=== PATIENT | female | born 1945 | race Caucasian/White ===

== ENCOUNTER → 2016-05-14 | Outpatient (CLI) | payer MEDICARE, OTHER | LOC: RAD 11:07 | PROVIDERS: ATTEND Physician Assistant | DX: G45.9 Transient cerebral ischemic attack, unspecified (principal); R41.82 Altered mental status, unspecified | CPT/HCPCS: 70551 ==

== ENCOUNTER 2016-05-15 14:21 | Observation (INO) | payer MEDICARE, OTHER ==
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
[2016-05-15 15:43] LABS: ABSOLUTE BASOPHILS # (AUTO) 0.1 10^3/uL (0.0-0.2); ABSOLUTE EOSINOPHILS # (AUTO) 0.2 10^3/uL (0.0-0.6); ABSOLUTE LYMPHOCYTES (AUTO) 2.4 10^3/uL (0.5-4.7); ABSOLUTE NEUT (AUTO) 8.3 10^3/uL (1.7-8.2); BASOPHILS % (AUTO) 0.5 % (0-2); EOSINOPHILS % (AUTO) 1.6 % (0-6); HEMATOCRIT 41.1 % (36.0-47.0); HEMOGLOBIN 13.5 g/dL (12.0-15.5); HGB HCT DIFFERENCE -0.6; LYMPHOCYTES % (AUTO) 19.9 % (13-45); MEAN CORPUSCULAR HEMOGLOBIN 31.1 pg (27.0-33.4); MEAN CORPUSCULAR HGB CONC 32.9 g/dL (32.0-36.0); MEAN CORPUSCULAR VOLUME 95 fl (80-97); MONOCYTES % (AUTO) 8.6 % (3-13); RED BLOOD COUNT 4.35 10^6/uL (3.72-5.28); RED CELL DISTRIBUTION WIDTH 13.1 % (11.5-14.0); SEGMENTED NEUTROPHILS % (AUTO) 69.4 % (42-78)
[2016-05-15 15:58] LABS: ALANINE AMINOTRANSFERASE 78 U/L (9-52); ALBUMIN 4.7 g/dL (3.5-5.0); ALKALINE PHOSPHATASE 103 U/L (38-126); ANION GAP 12 (5-19); ASPARTATE AMINO TRANSFERASE 91 U/L (14-36); BILIRUBIN,TOTAL 0.8 mg/dL (0.2-1.3); BLOOD UREA NITROGEN 14 mg/dL (7-20); CALCIUM 10.2 mg/dL (8.4-10.2); CARBON DIOXIDE 29 mmol/L (22-30); CHLORIDE 96 mmol/L (98-107); CREATININE RESULT 0.83 mg/dL (0.52-1.25); GLUCOSE 121 mg/dL (75-110); POTASSIUM 4.8 mmol/L (3.6-5.0); SODIUM 137.2 mmol/L (137-145); TOTAL PROTEIN 10.1 g/dL (6.3-8.2)
[2016-05-15 16:24] LABS: CREATINE KINASE MB < 0.22 ng/mL (<4.55); TROPONIN I < 0.012 ng/mL
[2016-05-15 16:34] LABS: APPEARANCE,URINE SLIGHTLY-CLOUDY; BILIRUBIN,URINE NEGATIVE (NEGATIVE); CALCIUM OXALATE CRYSTALS,URINE RARE /HPF; GLUCOSE, URINE NEGATIVE (NEGATIVE); KETONES,URINE NEGATIVE (NEGATIVE); LEUKOCYTE ESTERASE,URINE TRACE (NEGATIVE); NITRITE,URINE NEGATIVE (NEGATIVE); PROTEIN,URINE 30 mg/dL (NEGATIVE); URINE SPECIFIC GRAVITY 1.013; UROBILINOGEN,URINE NEGATIVE mg/dL (<2.0)
[2016-05-15] MEDS ORDERED: HYDRALAZINE HCL INJ/PF 20 MG/1 ML SDV IV PRN (17:57)
[2016-05-15] MEDS ORDERED: ACETAMINOPHEN 325 MG TABLET PO PRN (17:58)
[2016-05-15] MEDS ORDERED: ONDANSETRON HCL INJ/PF 4 MG/2 ML SDV IV PRN (17:58)
[2016-05-15] MEDS ORDERED: ENOXAPARIN SODIUM INJ 40 MG/0.4 ML DISP.SYRIN SUBCUT ONE (19:00)
--- NOTE | 2016-05-15 19:00 | PDOC H&P ---
History of Present Illness Admission Date/PCP: 05/15/16 17:58 TIRSO PLUNKETT PA-C Patient complains of: Dizziness History of Present Illness: JAI BULLARD is a 71 year old female with past medical history of hypertension and hypercholesterolemia that presents to the hospital with episode 3 days ago of dizziness, slurring speech. Since then she has had frequent episodes of crying spells. She did have an isolated headache today that has now resolved. Incidentally she was started on 6 new medications on the day prior to the onset of her symptoms. She does not know the name of these medications but they were for hypertension, hypercholesterolemia, osteoporosis. She had these medications filled at [facility] [place]. Patient was seen yesterday by her primary care provider and had an MRI of her brain that showed multiple old lacunar infarcts with no acute stroke. Past Medical History Cardiac Medical History: Reports: Coronary Artery Disease, Hyperlipidema, Hypertension Denies: Myocardial Infarction Pulmonary Medical History: Denies: Asthma, Bronchitis, Chronic Obstructive Pulmonary Disease (COPD), Pneumonia Neurological Medical History: Denies: Seizures Musculoskeltal Medical History: Denies: Arthritis Hematology: Reports: Anemia Past Surgical History Past Surgical History: Reports: Cholecystectomy Denies: Hysterectomy Social History Information Source: Patient Lives with: Spouse/Significant other Smoking Status: Never Smoker Frequency of Alcohol Use: None Hx Recreational Drug Use: No Hx Prescription Drug Abuse: No - Advance Directive Resuscitation Status: Full Code Family History Family History: CVA, Hypertension Parental Family History Reviewed: Yes Children Family History Reviewed: Yes Sibling(s) Family History Reviewed.: Yes Medication/Allergy Home Medications: Alendronate Sodium [Fosamax 10 mg Tablet] 10 mg PO DAILY 05/15/16 Atorvastatin Calcium [Lipitor 20 mg Tablet] 20 mg PO QHS 05/15/16 Cetirizine HCl [Zyrtec 10 mg Tablet] 10 mg PO DAILY 05/15/16 Hydrochlorothiazide [Hydrodiuril 12.5 mg Capsule] 12.5 mg PO DAILY 05/15/16 Lisinopril [Prinivil] 20 mg PO DAILY 05/15/16 Allergies/Adverse Reactions: No Known Allergies Allergy (Verified 05/15/16 14:41) Review of Systems Constitutional: ABSENT: chills, fever(s), headache(s), weight gain, weight loss Eyes: ABSENT: visual disturbances Ears: ABSENT: hearing changes Cardiovascular: ABSENT: chest pain, dyspnea on exertion, edema, orthropnea, palpitations Respiratory: ABSENT: cough, hemoptysis Gastrointestinal: ABSENT: abdominal pain, constipation, diarrhea, hematemesis, hematochezia, nausea, vomiting Genitourinary: ABSENT: dysuria, hematuria Musculoskeletal: ABSENT: joint swelling Integumentary: ABSENT: rash, wounds Neurological: PRESENT: abnormal speech, dizziness, lack of coordination. ABSENT : abnormal gait, confusion, focal weakness, syncope Psychiatric: ABSENT: anxiety, depression, homidical ideation, suicidal ideation Endocrine: ABSENT: cold intolerance, heat intolerance, polydipsia, polyuria Hematologic/Lymphatic: ABSENT: easy bleeding, easy bruising Physical Exam Vital Signs: Temp Pulse Resp BP Pulse Ox 97.9 F 84 20 167/78 H 05/15/16 14:26 05/15/16 16:20 05/15/16 14:26 05/15/16 16:20 PHYSICAL EXAM: GENERAL: Appears well, no acute distress HEENT: Normocephalic, no scleral icterus, conjunctiva clear, EOEM intact, PERRLA , moist mucous membranes NECK: trachea midline, no thyromegally RESPIRATORY: Clear to auscultation, no wheezes/rhonchi CARDIAC: Regular rate and rhythm, no murmur/ilia/rub ABDOMEN: Soft, no distension, no tenderness, no guarding, normal bowel sounds, negative Bean sign RECTAL: deferred : deferred EXTREMITIES: No edema, cyanosis, clubbing MUSCULOSKELETAL: No joint swelling or deformity VASCULAR: normal peripheral pulses NEUROLOGIC: Alert, oriented to person/place/time, normal speech, cranial nerves grossly intact, 5/5 strength in all extremities, tactile sensation intact in all extremities SKIN: No rash, no wounds, no worrisome skin lesions PSYCHIATRIC: Normal mood, normal affect Results Laboratory Results: Labs- All tests 24 hr 05/15/16 05/15/16 05/15/16 15:00 15:00 15:00 WBC 12.0 H RBC 4.35 Hgb 13.5 Hct 41.1 MCV 95 MCH 31.1 MCHC 32.9 RDW 13.1 Plt Count 297 Seg Neutrophils % 69.4 Lymphocytes % 19.9 Monocytes % 8.6 Eosinophils % 1.6 Basophils % 0.5 Absolute Neutrophils 8.3 H Absolute Lymphocytes 2.4 Absolute Monocytes 1.0 Absolute Eosinophils 0.2 Absolute Basophils 0.1 Sodium 137.2 Potassium 4.8 Chloride 96 L Carbon Dioxide 29 Anion Gap 12 BUN 14 Creatinine 0.83 Est GFR ( Amer) > 60 Est GFR (Non-Af Amer) > 60 Glucose 121 H Calcium 10.2 Total Bilirubin 0.8 Direct Bilirubin 0.0 AST 91 H ALT 78 H Alkaline Phosphatase 103 Creatine Kinase 32 CK-MB (CK-2) Troponin I Total Protein 10.1 H Albumin 4.7 Urine Color Urine Appearance Urine pH Ur Specific [place] Urine Protein Urine Glucose (UA) Urine Ketones Urine Blood Urine Nitrite Urine Bilirubin Urine Urobilinogen Ur Leukocyte Esterase Urine WBC (Auto) Urine RBC (Auto) Squamous Epi Cells Auto Calcium Oxalate Cr Auto Urine Mucus (Auto) Urine Ascorbic Acid 05/15/16 05/15/16 15:00 15:49 WBC RBC Hgb Hct MCV MCH MCHC RDW Plt Count Seg Neutrophils % Lymphocytes % Monocytes % Eosinophils % Basophils % Absolute Neutrophils Absolute Lymphocytes Absolute Monocytes Absolute Eosinophils Absolute Basophils Sodium Potassium Chloride Carbon Dioxide Anion Gap BUN Creatinine Est GFR ( Amer) Est GFR (Non-Af Amer) Glucose Calcium Total Bilirubin Direct Bilirubin AST ALT Alkaline Phosphatase Creatine Kinase CK-MB (CK-2) < 0.22 Troponin I < 0.012 Total Protein Albumin Urine Color YELLOW Urine Appearance SLIGHTLY-CLOUDY Urine pH 5.0 Ur Specific [place] 1.013 Urine Protein 30 H Urine Glucose (UA) NEGATIVE Urine Ketones NEGATIVE Urine Blood NEGATIVE Urine Nitrite NEGATIVE Urine Bilirubin NEGATIVE Urine Urobilinogen NEGATIVE Ur Leukocyte Esterase TRACE H Urine WBC (Auto) 7 Urine RBC (Auto) 2 Squamous Epi Cells Auto 1 Calcium Oxalate Cr Auto RARE Urine Mucus (Auto) RARE Urine Ascorbic Acid 40 H Assessment & Plan - Diagnosis (1) TIA (transient ischemic attack) Is this a current diagnosis for this admission?: YesPlan: Patient will be placed in observation status on telemetry monitoring. MRI of the brain on 05/14/2016 showed multiple old lacunar infarct but no acute process. I will start patient on aspirin 325 mg daily, Lipitor 40 mg nightly. Check carotid Dopplers, echocardiogram. Patient may need outpatient event monitor if nothing noted on EKG or telemetry. Check sedimentation rate given headache and TIA symptoms. (2) Hypertension Is this a current diagnosis for this admission?: YesPlan: Verify outpatient medications. When necessary IV hydralazine for now. (3) Hypercholesterolemia Is this a current diagnosis for this admission?: YesPlan: Start Lipitor 40 mg daily. (4) Leukocytosis Is this a current diagnosis for this admission?: YesPlan: Afebrile. Urinalysis negative. Check chest x-ray. Repeat CBC in a.m. Check sedimentation rate given headache and TIA symptoms. - Time Time Spent: Greater than 70 Minutes Anticipated discharge: Home Within: within 24 hours
[2016-05-15] MEDS ORDERED: ASPIRIN 81 MG TABLET, CHEWABLE PO ONE (19:15)
--- NOTE | 2016-05-15 20:30 | PDOC CONSULTATION ---
Consultation Consult Date: 05/15/16 Attending physician:: JAIRO PAULSON Consult reason:: TIA/stroke History of Present Illness Admission Date/PCP: 05/15/16 17:58 TIRSO PLUNKETT PA-C Patient complains of: Cerebrovascular accident History of Present Illness: JAI BULLARD is a 71 year old female with past medical history of hypertension and hypercholesterolemia that presents to the hospital with episode 3 days ago of dizziness, slurring speech. Since then she has had frequent episodes of crying spells. She did have an isolated headache today that has now resolved. Incidentally she was started on 6 new medications on the day prior to the onset of her symptoms. She does not know the name of these medications but they were for hypertension, hypercholesterolemia, osteoporosis. She had these medications filled at the base [facility] at [place]. Patient was seen yesterday by her primary care provider and had an MRI of her brain that showed multiple old lacunar infarcts with no acute stroke. Patient earlier today had complaint of severe left-sided headache but this has now resolved. Patient has been noted to have a flat and labile affect by the family members. No problems with gait has been noted. Past Medical History Cardiac Medical History: Reports: Coronary Artery Disease, Hyperlipidema, Hypertension Denies: Myocardial Infarction Pulmonary Medical History: Denies: Asthma, Bronchitis, Chronic Obstructive Pulmonary Disease (COPD), Pneumonia Neurological Medical History: Denies: Seizures Musculoskeltal Medical History: Denies: Arthritis Hematology: Reports: Anemia Past Surgical History Past Surgical History: Reports: Cholecystectomy Denies: Hysterectomy Social History Information Source: Patient Lives with: Spouse/Significant other Smoking Status: Never Smoker Frequency of Alcohol Use: None Hx Recreational Drug Use: No Hx Prescription Drug Abuse: No - Advance Directive Resuscitation Status: Full Code Surrogate healthcare decision maker:: Patient's Family History Family History: CVA, Hypertension Parental Family History Reviewed: Yes Children Family History Reviewed: Yes Sibling(s) Family History Reviewed.: Yes - Negative for premature coronary artery disease or sudden cardiac in the family amongst first degree relatives. Medication/Allergy Home Medications: Alendronate Sodium [Fosamax 10 mg Tablet] 10 mg PO DAILY 05/15/16 Atorvastatin Calcium [Lipitor 20 mg Tablet] 20 mg PO QHS 05/15/16 Cetirizine HCl [Zyrtec 10 mg Tablet] 10 mg PO DAILY 05/15/16 Hydrochlorothiazide [Hydrodiuril 12.5 mg Capsule] 12.5 mg PO DAILY 05/15/16 Lisinopril [Prinivil] 20 mg PO DAILY 05/15/16 Allergies/Adverse Reactions: No Known Allergies Allergy (Verified 05/15/16 14:41) Review of Systems Review of Systems: Please see history of present illness and past medical history as wall. Constitutional: No fever or chills reported. Head : No recent chronic headaches, recent head injury. Eyes: No recent eye pain, diplopia, redness, discharge, acute visual changes. Ears: No recent chronic ear pain, acute hearing loss, ear discharge. Oral cavity: No recent ulcerations, bleeding, oral cavity discomfort. Neck: No recent acute neck pain reported. Hematologic: No recent easy bruising or bleeding or hematologic malignancy reported. Lymphatic: No recent lymphatic malignancy, chronic lymphadenopathy reported yet Cardiovascular system review: See history of present illness. Respiratory system review: No recent chronic cough, hemoptysis, blood clots in the lungs reported. Mild Shortness of breath on exertion Gastrointestinal system review: Negative for any recent acute or chronic abdominal pain, hematemesis, melena, recent change in bowel habits. Genitourinary system review: No recent acute or chronic hematuria, flank pain, UTI etc. reported. Skin system review: Negative for any recent abnormal bruising, no rash, no pruritus reported. Neurologic: No prior history of strokes, mini strokes, seizure disorder. Please see history of present illness for recent neurological symptoms. Psychologic: No history of major psychosis or depression reported. Musculoskeletal: Minor aches and pains reported. No acute joint swelling reported. Endocrine: No recent polyuria, polydipsia, recent heat or cold intolerance. Physical Exam Vital Signs: Temp Pulse Resp BP Pulse Ox 97.9 F 84 20 167/78 H 05/15/16 14:26 05/15/16 16:20 05/15/16 14:26 05/15/16 16:20 Exam: GENERAL: well-nourished and in no acute distress. Alert and oriented x3 HEAD: Atraumatic, normocephalic. EYES: Pupils equal round and reactive to light, extraocular movements intact, sclera anicteric, conjunctiva are normal. ENT: TMs normal, nares patent, oropharynx clear without exudates. Moist mucous membranes. No oral ulcerations or bleeding gums noted NECK: supple without lymphadenopathy. Trachea is central. No cervical or axillary lymphadenopathy noted. Carotids are 2+, JVD WNL LUNGS: Respiration seems nonlabored, no significant accessory muscle action noted. Breath sounds clear to auscultation bilaterally and equal noted. No wheezes rales or rhonchi noted. No significant dullness noted on percussion. CHEST: Palpation of the chest wall shows no significant chest wall tenderness or abnormalities. 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 ABDOMEN: Soft, no significant tenderness appreciated, normoactive bowel sounds. No guarding, no rebound. No rigidity noted . No masses appreciated. EXTREMITIES: Pedal pulses are 1-2+, no calf tenderness noted. No clubbing or cyanosis.negative pedal edema noted NEUROLOGICAL: Focused neurological exam showed no significant neurologic deficit. Normal speech, no focal weakness appreciated. PSYCH: Normal mood, flat affect. Judgment and insight within normal limits. SKIN: No significant ecchymosis, rash, ulcerations or signs of pruritus noted. MUSCULOSKELETAL EXAM: No significant joint swelling noted. Results Impressions: Chest X-Ray 05/15/16 18:02 IMPRESSION: COPD. NO ACUTE RADIOGRAPHIC FINDING IN THE CHEST. Assessment & Plan - Diagnosis (1) Cerebrovascular accident Qualifiers: CVA mechanism: unspecified Qualified Code(s): I63.9 - Cerebral infarction, unspecified Is this a current diagnosis for this admission?: Yes (2) Headache Qualifiers: Headache type: unspecified Headache chronicity pattern: unspecified pattern Intractability: not intractable Qualified Code(s): R51 - Headache Is this a current diagnosis for this admission?: Yes (3) Hypercholesterolemia Is this a current diagnosis for this admission?: Yes (4) Hypertension Qualifiers: Hypertension type: essential hypertension Qualified Code(s): I10 - Essential (primary) hypertension Is this a current diagnosis for this admission?: Yes (5) TIA (transient ischemic attack) Qualifiers: Transient cerebral ischemia type: unspecified Qualified Code(s): G45.9 - Transient cerebral ischemic attack, unspecified Is this a current diagnosis for this admission?: Yes - Notes Notes: Patient noted to have previous cerebrovascular accident based on MRI. Patient' s symptom complex also suggest ongoing transient ischemic attacks. Patient mostly was noted to have lacunar infarct, these are most likely related to hypertension. Headaches: Could be related to cerebrovascular accident. Could be related to uncontrolled hypertension. Resume antihypertensive but go slow regarding escalation of doses so that hypo-tension is not created. Hypercholesterolemia: Recommend statin therapy. LDL goal less than 70. Hypertension: [place] management at this point but long-term tightening up of blood pressure control would help. Patient will benefit from event monitoring as patient at the age where she could have paroxysmal atrial fibrillation as cause of strokes and TIA. This was explained to the patient. - Time Time Spent: 30 to 50 Minutes - CODE STATUS was discussed, patient remains full code. Surrogate decision-maker patient's . Multiple medical problems were addressed.More than 50% of the time spent coordinating care, discussing management plans with involved caregivers. Management plans discussed with involved personnels. Medical decision making was of moderate complexity.
[2016-05-15 21:46] LABS: CREATINE KINASE MB < 0.22 ng/mL (<4.55); TROPONIN I < 0.012 ng/mL
[2016-05-15] MEDS ORDERED: ATORVASTATIN CALCIUM 40 MG TABLET PO SCH (22:00)
[2016-05-16 03:18] LABS: HEMATOCRIT 35.7 % (36.0-47.0); HEMOGLOBIN 12.4 g/dL (12.0-15.5); HGB HCT DIFFERENCE 1.5; MEAN CORPUSCULAR HEMOGLOBIN 32.6 pg (27.0-33.4); MEAN CORPUSCULAR HGB CONC 34.7 g/dL (32.0-36.0); MEAN CORPUSCULAR VOLUME 94 fl (80-97); RED BLOOD COUNT 3.81 10^6/uL (3.72-5.28); RED CELL DISTRIBUTION WIDTH 12.7 % (11.5-14.0); WHITE BLOOD COUNT 10.9 10^3/uL (4.0-10.5)
[2016-05-16 03:40] LABS: ANION GAP 8 (5-19); BLOOD UREA NITROGEN 14 mg/dL (7-20); CALCIUM 9.5 mg/dL (8.4-10.2); CARBON DIOXIDE 27 mmol/L (22-30); CHLORIDE 100 mmol/L (98-107); CHOLESTEROL 207.04 mg/dL (0-200); CREATINE KINASE 26 U/L (30-135); CREATININE RESULT 0.74 mg/dL (0.52-1.25); Direct HDL 27 mg/dL (>40); GLUCOSE 106 mg/dL (75-110); POTASSIUM 4.3 mmol/L (3.6-5.0); SODIUM 135.3 mmol/L (137-145); TRIGLYCERIDES 219 mg/dL (<150)
[2016-05-16 03:51] LABS: DIRECT LDL 149 mg/dL (<100)
[2016-05-16 03:54] LABS: CREATINE KINASE MB < 0.22 ng/mL (<4.55); TROPONIN I < 0.012 ng/mL; VLDL CHOLESTEROL 43.8 mg/dL (10-31)
[2016-05-16] MEDS ORDERED: ENOXAPARIN SODIUM INJ 40 MG/0.4 ML DISP.SYRIN SUBCUT SCH (08:00)
--- NOTE | 2016-05-16 08:45 | EKG REPORT ---
SEVERITY:- NORMAL ECG - SINUS RHYTHM : Confirmed by: Gavin Whitmore MD 16-May-2016 08:44:13
[2016-05-16 09:57] LABS: CREATINE KINASE MB < 0.22 ng/mL (<4.55); TROPONIN I < 0.012 ng/mL
[2016-05-16] MEDS ORDERED: ASPIRIN 325 MG TABLET, ENT COATED PO SCH (10:00)
--- NOTE | 2016-05-16 13:55 | XCELERA REPORT ---
[address] [address] Transthoracic Echocardiogram Report Name: JAI BULLARD Age: 71 yrs Gender: Female : 1945 Patient Status: Inpatient Patient Location: [id number] Study Date: 05/16/2016 11:54 AM Height: 64 in Weight: 132 lb BSA: 1.6 m2 Procedure: A complete two-dimensional transthoracic echocardiogram was performed (2D, M-mode, spectral and color flow Doppler). The study was technically adequate with some images being suboptimal in quality. Reason For Study: TIA Ordering Physician: JAIRO PAULSON Performed By: Renetta Gilman Interpretation Summary The left ventricular ejection fraction is normal. There is mild concentric left ventricular hypertrophy. The left ventricle is grossly normal size. Doppler measurements suggest pseudonormalized left ventricular relaxation, which is associated with grade II/IV or mild to moderate diastolic dysfunction Wall motion cannot be accurately commented on, but no definite regional wall motion abnormalities noted. The right ventricular systolic function is normal. The right atrium is normal in size The left atrium is mildly dilated. There is borderline mitral valve posterior leaflet prolapse. There is a mild amount of mitral regurgitation There is no mitral valve stenosis. There is no aortic valve stenosis No aortic regurgitation is present. There is a mild amount of tricuspid regurgitation There is mild pulmonary hypertension by echo Right ventricular systolic pressure is estimated to be elevated at 30- 40mmHg. The aortic root is not well visualized but is probably normal size. The inferior vena cava appeared normal and decreased > 50% with respiration (RAP 5-10 mmHg) There is no pericardial effusion. No definite cardiac source of CVA/TIA noted on this particular trans- thoracic study. Consider FREDY if clinically indicated. May consider mobile cardiac telemetry monitoring (MCT) for ruling out transient AFIB. MMode/2D Measurements \T\ Calculations RVDd: 2.5 cm LVIDd: 3.6 cm FS: 35.9 % Ao root diam: 2.4 cm IVSd: 1.0 cm LVIDs: 2.3 cm EDV(Teich): 53.3 ml LVPWd: 1.0 cm ESV(Teich): 17.9 ml Ao root area: 4.5 cm2 EF(Teich): 66.4 % LA dimension: 3.1 cm Doppler Measurements \T\ Calculations MV E max wm: MV P1/2t max wm: Ao V2 max: LV V1 max P.4 cm/sec 85.4 cm/sec 105.2 cm/sec 2.6 mmHg MV A max wm: MV P1/2t: 58.8 msec Ao max PG: LV V1 max: 88.4 cm/sec 4.4 mmHg 80.5 cm/sec MV E/A: 0.97 MVA(P1/2t): 3.7 cm2 MV dec slope: 425.4 cm/sec2 MV dec time: 0.22 sec PA V2 max: PI end-d wm: TR max wm: 76.5 cm/sec 82.5 cm/sec 249.8 cm/sec PA max PG: TR max P.3 mmHg 25.0 mmHg Left Ventricle The left ventricle is grossly normal size. There is mild concentric left ventricular hypertrophy. The left ventricular ejection fraction is normal. Doppler measurements suggest pseudonormalized left ventricular relaxation, which is associated with grade II/IV or mild to moderate diastolic dysfunction. Wall motion cannot be accurately commented on, but no definite regional wall motion abnormalities noted. Right Ventricle The right ventricle is grossly normal size. There is normal right ventricular wall thickness. The right ventricular systolic function is normal. Atria The right atrium is normal in size. The left atrium is mildly dilated. Interarterial septum not well visualized and not well dopplered. Cannot comment on ASD/PFO presence. Mitral Valve The mitral valve is grossly normal. There is borderline mitral valve prolapse. There is no mitral valve stenosis. There is a mild amount of mitral regurgitation. Aortic Valve The aortic valve is grossly normal. There is no aortic valve stenosis. No aortic regurgitation is present. Tricuspid Valve The tricuspid valve is not well visualized, but is grossly normal. There is no tricuspid stenosis. There is a mild amount of tricuspid regurgitation. There is mild pulmonary hypertension by echo. Right ventricular systolic pressure is estimated to be elevated at 30-40mmHg. Pulmonic Valve The pulmonic valve is not well visualized. Great Vessels The aortic root is not well visualized but is probably normal size. The inferior vena cava appeared normal and decreased > 50% with respiration (RAP 5-10 mmHg). Effusions There is no pericardial effusion. Incidental Findings No definite cardiac source of CVA/TIA noted on this particular trans- thoracic study. Consider FREDY if clinically indicated. May consider mobile cardiac telemetry monitoring (MCT) for ruling out transient AFIB. : JAIRO PAULSON > Malvin Gonzalez
[2016-05-16] MEDS ORDERED: LISINOPRIL 10 MG TABLET PO ONE (15:15)
--- NOTE | 2016-05-16 15:26 | PDOC PROGRESS REPORT ---
Subjective Progress Note for:: 05/16/16 Subjective:: Patient seems to be doing better, with no new neurological deficit or complaint. Pt is denying any chest arm or neck discomfort. Patient denying any PND, orthopnea. Patient denied any sustained palpitations, dizziness, syncope, near syncope. Patient denying any fever chills. Patient denying any other significant discomfort. Patient is maintaining sinus rhythm. Review of systems: Rest review of systems negative. Medications: Medications have been reviewed. Physical Exam Vital Signs: Temp Pulse Resp BP Pulse Ox 98.1 F 83 20 126/65 H 97 05/16/16 11:33 05/16/16 14:00 05/16/16 11:33 05/16/16 11:33 05/16/16 11:33 Intake & Output 05/15/16 05/16/16 05/17/16 06:59 06:59 06:59 Intake Total 350 Balance 350 Weight 56.7 kg Exam: GENERAL: well-nourished and in no acute distress. Alert and oriented x3 HEAD: Atraumatic, normocephalic. EYES: Pupils equal round and reactive to light, extraocular movements intact, sclera anicteric, conjunctiva are normal. ENT: TMs normal, nares patent, oropharynx clear without exudates. Moist mucous membranes. No oral ulcerations or bleeding gums noted NECK: supple without lymphadenopathy. Trachea is central. No cervical or axillary lymphadenopathy noted. Carotids are 2+, JVD WNL LUNGS: Respiration seems nonlabored, no significant accessory muscle action noted. Breath sounds clear to auscultation bilaterally and equal noted. No wheezes rales or rhonchi noted. No significant dullness noted on percussion. CHEST: Palpation of the chest wall shows no significant chest wall tenderness. No other significant abnormalities noted. 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 ABDOMEN: Soft, no significant tenderness appreciated, normoactive bowel sounds. No guarding, no rebound. No rigidity noted . No masses appreciated. EXTREMITIES: Pedal pulses are 1-2+, no calf tenderness noted. No clubbing or cyanosis.trace to 1+ pedal edema noted NEUROLOGICAL: Focused neurological exam showed no significant neurologic deficit. Normal speech, no focal weakness appreciated. PSYCH: Normal mood, normal affect. Judgment and insight within normal limits. SKIN: No significant ecchymosis, rash, ulcerations or signs of pruritus noted. MUSCULOSKELETAL EXAM: No significant joint swelling noted. Results Laboratory Results: 05/16/16 03:11 05/16/16 03:11 05/16/16 05/16/16 05/16/16 03:11 03:11 03:11 WBC 10.9 H RBC 3.81 Hgb 12.4 Hct 35.7 L MCV 94 MCH 32.6 MCHC 34.7 RDW 12.7 Plt Count 220 Sodium 135.3 L Potassium 4.3 Chloride 100 Carbon Dioxide 27 Anion Gap 8 BUN 14 Creatinine 0.74 Est GFR ( Amer) > 60 Est GFR (Non-Af Amer) > 60 Glucose 106 Calcium 9.5 Triglycerides 219 H Cholesterol 207.04 H LDL Cholesterol Direct 149 H VLDL Cholesterol 43.8 H HDL Cholesterol 27 L TSH 1.34 05/15/16 05/15/16 05/16/16 21:05 21:05 03:11 Creatine Kinase 27 L 26 L CK-MB (CK-2) < 0.22 Troponin I < 0.012 05/16/16 05/16/16 05/16/16 03:11 09:13 09:13 Creatine Kinase 28 L CK-MB (CK-2) < 0.22 < 0.22 Troponin I < 0.012 < 0.012 Impressions: Chest X-Ray 05/15/16 18:02 IMPRESSION: COPD. NO ACUTE RADIOGRAPHIC FINDING IN THE CHEST. Carotid Doppler Study 05/16/16 00:00 IMPRESSION: NO HEMODYNAMICALLY SIGNIFICANT STENOSIS. Assessment & Plan - Diagnosis (1) Cerebrovascular accident Qualifiers: CVA mechanism: unspecified Qualified Code(s): I63.9 - Cerebral infarction, unspecified Is this a current diagnosis for this admission?: Yes (2) Headache Qualifiers: Headache type: unspecified Headache chronicity pattern: unspecified pattern Intractability: not intractable Qualified Code(s): R51 - Headache Is this a current diagnosis for this admission?: Yes (3) Hypercholesterolemia Is this a current diagnosis for this admission?: Yes (4) Hypertension Qualifiers: Hypertension type: essential hypertension Qualified Code(s): I10 - Essential (primary) hypertension Is this a current diagnosis for this admission?: Yes (5) TIA (transient ischemic attack) Qualifiers: Transient cerebral ischemia type: unspecified Qualified Code(s): G45.9 - Transient cerebral ischemic attack, unspecified Is this a current diagnosis for this admission?: Yes - Notes Notes: Cerebrovascular accident: Patient had multiple lacunar infarct. Could be related to hypertension. Possible sleep apnea syndrome, possible cardiac dysrhythmia related. Patient to be treated with aspirin and statin at this point. Needs satisfactory control of blood pressure. Headache: Not a pain this morning. Hypercholesterolemia: LDL goal is less than 70 in this patient. Continue with statin therapy. Transient ischemic attack: No recurrences. - Time Time with patient: Greater than 35 minutes - 2-D echo results were discussed. Patient advised event monitoring. Patient would benefit from a sleep study to rule out any sleep apnea which has been linked to increased cause of strokes. CODE STATUS was discussed, patient remains full code. Surrogate decision-maker ration's . Multiple medical problems were addressed.More than 50% of the time spent coordinating care, discussing management plans with involved caregivers. Management plans discussed with involved personnels. Medical decision making was of moderate complexity. Medications reviewed and adjusted accordingly: Yes
[2016-05-16 15:45] VITALS: BP 136/76
[2016-05-17] MEDS ORDERED: LISINOPRIL 10 MG TABLET PO SCH (10:00)
[2016-05-17] MEDS ORDERED: ALENDRONATE SODIUM 10 MG TABLET PO SCH (10:00)
[2016-05-17] MEDS ORDERED: CETIRIZINE 10 MG TABLET PO SCH (10:00)
--- NOTE | 2016-05-18 16:50 | PDOC DISCHARGE SUMMARY ---
General - Admit/Disc Date/PCP Admission Date/Primary Care Provider: 05/15/16 17:58 TIRSO PLUNKETT PA-C Discharge Date: 05/16/16 - Discharge Diagnosis (1) TIA (transient ischemic attack) Is this a current diagnosis for this admission?: Yes (2) Hypertension Is this a current diagnosis for this admission?: Yes (3) Hypercholesterolemia Is this a current diagnosis for this admission?: Yes (4) Leukocytosis Is this a current diagnosis for this admission?: Yes - Additional Information Resuscitation Status: Full Code Discharge Diet: Cardiac Discharge Activity: Activity As Tolerated Home Medications: Alendronate Sodium [Fosamax 10 mg Tablet] 10 mg PO DAILY 05/15/16 Atorvastatin Calcium [Lipitor 20 mg Tablet] 20 mg PO QHS 05/15/16 Cetirizine HCl [Zyrtec 10 mg Tablet] 10 mg PO DAILY 05/15/16 Aspirin [Ecotrin 325 mg EC Tablet] 325 mg PO DAILY tabec 05/16/16 Lisinopril [Prinivil 10 mg Tablet] 10 mg PO DAILY #30 tablet 05/16/16 History of Present Illness Patient complains of: Dizziness History of Present Illness: JAI BULLARD is a 71 year old female with past medical history of hypertension and hypercholesterolemia that presents to the hospital with episode 3 days ago of dizziness, slurring speech. Since then she has had frequent episodes of crying spells. She did have an isolated headache today that has now resolved. Incidentally she was started on 6 new medications on the day prior to the onset of her symptoms. She does not know the name of these medications but they were for hypertension, hypercholesterolemia, osteoporosis. She [facility] these medications [facility] [place]. Patient was seen yesterday by her primary care provider and had an MRI of her brain that showed multiple old lacunar infarcts with no acute stroke. Hospital Course Hospital Course: Patient was admitted for diagnosis of TIA. She had an outpatient MRI performed on 05/14/2016 that showed multiple old lacunar infarcts but no acute process. Carotid Dopplers were negative. EKG showed sinus rhythm. Echocardiogram showed normal EF, grade 2/4 as tolerated dysfunction, no significant valvular issues. Patient was seen by cardiology for this as well as dizziness and near syncope. It is recommended that patient have outpatient event monitor this will be arranged. Patient is to be continued on aspirin and statin. With regard to patient's hypertension, she recently had increase in her left pressure medications in the day after medications were increased she had TIA symptoms and dizziness. I will discontinue hydrochlorothiazide and decrease lisinopril to 10 mg daily. She will need to follow-up with her primary care provider soon as possible. Physical Exam Vital Signs: Temp Pulse Resp BP Pulse Ox 98.1 F 83 20 126/65 H 97 05/16/16 11:33 05/16/16 14:00 05/16/16 11:33 05/16/16 11:33 05/16/16 11:33 Intake & Output 05/15/16 05/16/16 05/17/16 06:59 06:59 06:59 Intake Total 350 Balance 350 Weight 56.7 kg GENERAL: No acute distress HEENT: Conjunctiva clear, nonicteric, moist mucous membranes, no JVD, midline trachea RESPIRATORY: Clear to auscultation bilaterally, no wheezes, no rhonchi CARDIAC: Regular rate and rhythm, no murmurs/gallops/rubs ABDOMEN: Soft, nondistended, nontender, positive bowel sounds, no rebound, no guarding EXTREMETIES: No edema, cyanosis, clubbing NEUROLOGIC: Alert, oriented to person/place/time, CN's grossly intact, no focal deficits SKIN: No rash, wounds PSYCH: Normal mood, normal affect Results Laboratory Results: 05/16/16 03:11 05/16/16 03:11 05/16/16 05/16/16 05/16/16 03:11 03:11 03:11 WBC 10.9 H RBC 3.81 Hgb 12.4 Hct 35.7 L MCV 94 MCH 32.6 MCHC 34.7 RDW 12.7 Plt Count 220 Sodium 135.3 L Potassium 4.3 Chloride 100 Carbon Dioxide 27 Anion Gap 8 BUN 14 Creatinine 0.74 Est GFR ( Amer) > 60 Est GFR (Non-Af Amer) > 60 Glucose 106 Calcium 9.5 Triglycerides 219 H Cholesterol 207.04 H LDL Cholesterol Direct 149 H VLDL Cholesterol 43.8 H HDL Cholesterol 27 L TSH 1.34 05/15/16 05/15/16 05/16/16 21:05 21:05 03:11 Creatine Kinase 27 L 26 L CK-MB (CK-2) < 0.22 Troponin I < 0.012 05/16/16 05/16/16 05/16/16 03:11 09:13 09:13 Creatine Kinase 28 L CK-MB (CK-2) < 0.22 < 0.22 Troponin I < 0.012 < 0.012 Impressions: Chest X-Ray 05/15/16 18:02 IMPRESSION: COPD. NO ACUTE RADIOGRAPHIC FINDING IN THE CHEST. Carotid Doppler Study 05/16/16 00:00 IMPRESSION: NO HEMODYNAMICALLY SIGNIFICANT STENOSIS. Qualifiers PATEINT BEING DISCHARGED WITH ANY OF THE FOLLOWING DIAGNOSIS?: No Plan Time Spent: Less than 30 Minutes
== END 2016-05-16 17:01 | disposition home or self-care (01) ==
LOC: ER 14:21 → EH 17:56 → UNDOADMOB 17:56 → EH 17:58 → 4N 21:43
DX: G45.9 Transient cerebral ischemic attack, unspecified (principal); I10 Essential (primary) hypertension; E78.00 Pure hypercholesterolemia, unspecified; I25.10 Atherosclerotic heart disease of native coronary artery without angina pectoris; D64.9 Anemia, unspecified; Z79.899 Other long term (current) drug therapy; Z90.49 Acquired absence of other specified parts of digestive tract
CPT/HCPCS: 99285; 36415 ×2; 82553 ×2; 82550 ×2; 84443; 85025; 85027; 85652; 80048; 80053; 81001; 84484 ×2; 80061; 93306; 93880; 71010; 93005; 93010; G0378 ×3; A9270 ×3; J3490 ×2

== ENCOUNTER → 2016-09-14 | Outpatient (CLI) | payer MEDICARE, OTHER ==
--- NOTE | 2016-09-14 16:15 | RADIOLOGY REPORT (SQ) ---
EXAM DESCRIPTION: CHEST PA/LAT COMPLETED DATE/TIME: 09/14/2016 3:42 pm REASON FOR STUDY: COUGH/WHEEZING COMPARISON: Chest x-ray 2009 TECHNIQUE: Frontal and lateral radiographic views of the chest acquired. NUMBER OF VIEWS: Two view. LIMITATIONS: None. FINDINGS: LUNGS AND PLEURA: Changes COPD with bilateral apical scarring, stable appearance. No new developing infiltrates or pleural effusion. MEDIASTINUM AND HILAR STRUCTURES: No masses or contour abnormalities. HEART AND VASCULAR STRUCTURES: Heart normal size. No evidence for failure. BONES: No acute findings. HARDWARE: None in the chest. OTHER: No other significant finding. IMPRESSION: COPD with stable bilateral apical scarring. TECHNICAL DOCUMENTATION: JOB ID: [id number] [employer]- All Rights Reserved
== END ==
LOC: RAD 15:18
DX: R05 Cough (principal); R06.2 Wheezing; J44.9 Chronic obstructive pulmonary disease, unspecified
CPT/HCPCS: 71020

== ENCOUNTER 2018-09-08 13:25 | Emergency (ER) | payer MEDICARE, OTHER ==
--- NOTE | 2018-09-08 13:34 | ER Document Report ---
ED Medical Screen (RME) - General Chief Complaint: S/S of Possible Stroke Stated Complaint: ARM PAIN/NUMBNESS Time Seen by Provider: 09/08/18 13:33 Primary Care Provider: TIRSO PLUNKETT PA-C [Primary Care Provider] - Follow up as needed Mode of Arrival: Ambulatory Information source: Patient Notes: Patient is a 73-year-old female who presents with 20-minute onset of right hand and arm numbness and slurred speech. reports her speech has slightly improved. Patient does continue to have slurred speech upon my initial assessment. 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 Patient will be taken straight to CT scan. I have greeted and performed a rapid initial assessment of this patient. A comprehensive ED assessment and evaluation of the patient, analysis of test results and completion of the medical decision making process will be conducted by additional ED providers. Dictation of this chart was performed using voice recognition software; therefore, there may be some unintended grammatical errors. TRAVEL OUTSIDE OF THE [place] IN LAST 30 DAYS: No - Related Data Allergies/Adverse Reactions: No Known Allergies Allergy (Verified 05/15/16 14:41) Past Medical History - Past Medical History Cardiac Medical History: Reports: Hx Coronary Artery Disease, Hx Hypercholesterolemia, Hx Hypertension Denies: Hx Heart Attack Pulmonary Medical History: Denies: Hx Asthma, Hx Bronchitis, Hx COPD, Hx Pneumonia Neurological Medical History: Denies: Hx Cerebrovascular Accident, Hx Seizures Renal/ Medical History: Denies: Hx Peritoneal Dialysis Musculoskeltal Medical History: Denies Hx Arthritis Past Surgical History: Reports: Hx Cholecystectomy. Denies: Hx Hysterectomy - Immunizations Hx Diphtheria, Pertussis, Tetanus Vaccination: No Doctor's Discharge - Discharge Referrals: TIRSO PLUNKETT PA-C [Primary Care Provider] - Follow up as needed
--- NOTE | 2018-09-08 13:52 | RADIOLOGY REPORT (SQ) ---
EXAM DESCRIPTION: CT HEAD WITHOUT COMPLETED DATE/TIME: 09/08/2018 1:40 pm REASON FOR STUDY: slurred speech, right arm numbness COMPARISON: MR dated 05/14/2016. TECHNIQUE: Axial images acquired through the brain without intravenous contrast. Images reviewed wi th bone, brain and subdural windows. Additional sagittal and coronal reconstructions were generated. Images stored on PACS. All CT scanners at this facility use dose modulation, iterative reconstruction, and/or weight based d osing when appropriate to reduce radiation dose to as low as reasonably achievable (ALARA). [facility]: Dose Right [facility]: CareDose [facility]: Dose Right [facility]: Teradose 4D [facility]: [employer] RADIATION DOSE: CT Rad equipment meets quality standard of care and radiation dose reduction techniq ues were employed. CTDIvol: 53.2 mGy. DLP: 937 mGy-cm. mGy. LIMITATIONS: None. FINDINGS: VENTRICLES: Prominent. CEREBRUM: No masses. No hemorrhage. No midline shift. Areas of low density in the white matter mos t likely due to chronic micro-vascular ischemic change. Old lacunar infarcts. No evidence for acute infarction. CEREBELLUM: No masses. No hemorrhage. No alteration of density. No evidence for acute infarction. EXTRAAXIAL SPACES: Mild age-related involutional change. No fluid collections. No masses. ORBITS AND GLOBE: No intra- or extraconal masses. Normal contour of globe without masses. CALVARIUM: No fracture. PARANASAL SINUSES: No fluid or mucosal thickening. SOFT TISSUES: No mass or hematoma. OTHER: No other significant finding. IMPRESSION: MILD CHRONIC CHANGES OF ATROPHY AND MICROVASCULAR ISCHEMIA. OLD LACUNAR INFARCTS. NO A CUTE PROCESS. EVIDENCE OF ACUTE STROKE: NO. COMMENT: Pertinent positive or negative findings of the imaging study reported as a CRITICAL EXAM ellie BOLAÑOS MD at13:42 on 09/08/2018. Category of Critical Exam: Stroke protocol. TECHNICAL DOCUMENTATION: JOB ID: [id number] Quality ID # [id number]: Final reports with documentation of one or more dose reduction techniques (e.g., Au tomated exposure control, adjustment of the mA and/or kV according to patient size, use of iterative reconstruction technique) 2010 [employer]- All Rights Reserved Reading location - IP/workstation name: [email or web address]
--- NOTE | 2018-09-08 13:55 | RADIOLOGY REPORT (SQ) ---
EXAM DESCRIPTION: CHEST SINGLE VIEW COMPLETED DATE/TIME: 09/08/2018 1:44 pm REASON FOR STUDY: slurred speech, right arm numbness COMPARISON: 02/09/2017. EXAM PARAMETERS: NUMBER OF VIEWS: One view. TECHNIQUE: Single frontal radiographic view of the chest acquired. RADIATION DOSE: NA LIMITATIONS: None. FINDINGS: LUNGS AND PLEURA: Chronic pleural and parenchymal scarring. No opacities, masses or pneum othorax. No pleural effusion. MEDIASTINUM AND HILAR STRUCTURES: No masses. Contour normal. HEART AND VASCULAR STRUCTURES: Heart normal in size. Normal vasculature. BONES: No acute findings. HARDWARE: Clips in the upper abdomen. OTHER: No other significant finding. IMPRESSION: CHRONIC SCARRING. NO ACUTE RADIOGRAPHIC FINDING IN THE CHEST. TECHNICAL DOCUMENTATION: JOB ID: [id number] [employer]- All Rights Reserved Reading location - IP/workstation name: [email or web address]
[2018-09-08] MEDS ORDERED: ENALAPRILAT DIHYDRATE INJ/PF 1.25 MG/1 ML SDV IV ONE (14:31)
--- NOTE | 2018-09-08 14:35 | ER Document Report ---
ED General - General Chief Complaint: S/S of Possible Stroke Stated Complaint: ARM PAIN/NUMBNESS Time Seen by Provider: 09/08/18 13:33 Primary Care Provider: TIRSO PLUNKETT PA-C [ALLIED HEALTH PROFESSIONAL] - Follow up as needed Mode of Arrival: Ambulatory Information source: Patient, Relative, [facility] Records Notes: 73-year-old female with coronary artery disease, hyperlipidemia, hypertension, previous CVA approximately 1 year ago which did not leave her with any residual deficits presents with her who is concerned for slurred speech that occurred approximately 2 hours prior to arrival while at [facility]. Patient's reports slurred speech that has now resolved. He states that it was minor and he could still understand the patient. Patient states that she awoke feeling well this morning except for some mild left-sided neck pain. She denies any headache, visual changes, nausea, vomiting, chest pain, shortness of breath, abdominal pain, dysuria, hematuria. She does have chronic back pain which she says is unchanged. Patient has never used tobacco, occasionally drinks and denies any illicit drug use. TRAVEL OUTSIDE OF THE [place] IN LAST 30 DAYS: No - HPI Onset: Just prior to arrival Onset/Duration: Sudden, Gone Quality of pain: Achy Severity: Mild Associated symptoms: Body/muscle aches. denies: Chest pain, Nonproductive cough, Productive cough, Headache, Nausea, Vomiting, Shortness of breath, Sweating Exacerbated by: Movement Relieved by: Denies Similar symptoms previously: Yes Recently seen / treated by doctor: No - Related Data Allergies/Adverse Reactions: No Known Allergies Allergy (Verified 05/15/16 14:41) Past Medical History - General Information source: Patient - Social History Smoking Status: Never Smoker Frequency of alcohol use: Occasional Drug Abuse: None Lives with: Spouse/Significant other Family History: CVA, Hypertension Patient has suicidal ideation: No Patient has homicidal ideation: No - Past Medical History Cardiac Medical History: Reports: Hx Coronary Artery Disease, Hx Hypercholesterolemia, Hx Hypertension Denies: Hx Heart Attack Pulmonary Medical History: Denies: Hx Asthma, Hx Bronchitis, Hx COPD, Hx Pneumonia Neurological Medical History: Denies: Hx Cerebrovascular Accident, Hx Seizures Renal/ Medical History: Denies: Hx Peritoneal Dialysis Musculoskeletal Medical History: Denies Hx Arthritis Past Surgical History: Reports: Hx Cholecystectomy. Denies: Hx Hysterectomy - Immunizations Hx Diphtheria, Pertussis, Tetanus Vaccination: No Review of Systems - Review of Systems Notes: REVIEW OF SYSTEMS: CONSTITUTIONAL : Denies fever, chills, or sweats. Denies recent illness. Denies weight loss, recent hospitalizations. EENT: Denies visual changes, eye pain. Denies sore throat, oral lesions, difficulty swallowing. CARDIOVASCULAR: Denies chest pain. Denies palpitations. Denies lower extremity edema. RESPIRATORY: Denies cough. Denies shortness of breath, wheezing. GASTROINTESTINAL: Denies abdominal pain or distention. Denies nausea, vomit ing, or diarrhea. Denies blood in vomitus, stools, or per rectum. Denies black, tarry stools. Denies constipation. GENITOURINARY: Denies difficulty urinating, painful urination, frequency, bloo d in urine, or vaginal discharge. MUSCULOSKELETAL: Denies joint pain or swelling. SKIN: Denies rash, lesions or sores. HEMATOLOGIC : Denies easy bruising or bleeding. LYMPHATIC: Denies swollen glands. NEUROLOGICAL: Denies confusion or altered mental status. Denies loss of consciousness. Denies dizziness or lightheadedness. Denies headache. Denies weakness or paralysis. Denies problems difficulty with ambulation. Denies sensory loss, numbness, or tingling. Denies seizures. PSYCHIATRIC: Denies anxiety or stress. Denies depression, suicidal ideation, or homicidal ideation. Denies visual or auditory hallucinations. Physical Exam - Vital signs Vitals: Pulse Resp BP Pulse Ox 106 H 18 207/98 H 99 09/08/18 13:33 09/08/18 13:33 09/08/18 13:33 09/08/18 13:33 - Notes Notes: PHYSICAL EXAMINATION: GENERAL: Well-appearing, well-nourished and in no acute distress. HEAD: Atraumatic, normocephalic. EYES: Pupils equal round and reactive to light, extraocular movements intact, conjunctiva are normal. ENT: Nares patent, oropharynx clear without exudates. Moist mucous membranes. NECK: Normal range of motion, supple without lymphadenopathy LUNGS: Breath sounds clear to auscultation bilaterally and equal. No wheezes rales or rhonchi. HEART: Regular rate and rhythm without murmurs ABDOMEN: Soft, nontender, nondistended abdomen. No guarding, no rebound. No masses appreciated. Female : deferred Musculoskeletal: Normal range of motion, no pitting or edema. No cyanosis. NEUROLOGICAL:Mental status; alert and oriented x3. Cranial nerves II through XII intact. Sensation intact to sharp/dull differentiation in all extremities.Motor; normal tone. No abnormal movements appreciated. No pronator drift. Strength tested and 5/5 in bilateral wrist flexion/extension, elbow flexion/extension, shoulder abduction, straight leg raise, knee flexion/extension, ankle dorsiflexion/plantar flexion. Patient ambulates with a steady gait.Coordination; no ataxia. Finger to nose and heel to love testing intact bilaterally.Reflexes; brachial radialis, biceps, and patellar reflexes within normal limits and symmetric bilaterally. Babinski with downgoing toes bilaterally. NIH 0 PSYCH: Normal mood, normal affect. SKIN: Warm, Dry, normal turgor, no rashes or lesions noted. Course - Re-evaluation Re-evalutation: 09/08/18 18:09 Laboratory 09/08/18 09/08/18 09/08/18 14:40 14:40 14:40 WBC 10.9 H RBC 3.65 L Hgb 12.2 Hct 34.8 L MCV 95 MCH 33.4 MCHC 35.1 RDW 12.5 Plt Count 237 Seg Neutrophils % 41.0 L Lymphocytes % 37.7 Monocytes % 10.7 Eosinophils % 10.2 H Basophils % 0.4 Absolute Neutrophils 4.5 Absolute Lymphocytes 4.1 Absolute Monocytes 1.2 Absolute Eosinophils 1.1 H Absolute Basophils 0.0 PT 13.9 INR 1.02 APTT 27.6 Sodium 141.0 Potassium 4.6 Chloride 99 Carbon Dioxide 30 Anion Gap 12 BUN 19 Creatinine 0.96 Est GFR ( Amer) > 60 Est GFR (Non-Af Amer) 57 L Glucose 108 Calcium 10.3 H Total Bilirubin 0.6 Direct Bilirubin 0.3 Neonat Total Bilirubin Not Reportable Neonat Direct Bilirubin Not Reportable Neonat Indirect Bili Not Reportable AST 76 H ALT 61 H Alkaline Phosphatase 65 Creatine Kinase 34 CK-MB (CK-2) Troponin I Total Protein 9.0 H Albumin 4.5 09/08/18 14:40 WBC RBC Hgb Hct MCV MCH MCHC RDW Plt Count Seg Neutrophils % Lymphocytes % Monocytes % Eosinophils % Basophils % Absolute Neutrophils Absolute Lymphocytes Absolute Monocytes Absolute Eosinophils Absolute Basophils PT INR APTT Sodium Potassium Chloride Carbon Dioxide Anion Gap BUN Creatinine Est GFR ( Amer) Est GFR (Non-Af Amer) Glucose Calcium Total Bilirubin Direct Bilirubin Neonat Total Bilirubin Neonat Direct Bilirubin Neonat Indirect Bili AST ALT Alkaline Phosphatase Creatine Kinase CK-MB (CK-2) < 0.22 Troponin I < 0.012 Total Protein Albumin Laboratory 09/08/18 09/08/18 09/08/18 14:40 14:40 14:40 WBC 10.9 H RBC 3.65 L Hgb 12.2 Hct 34.8 L MCV 95 MCH 33.4 MCHC 35.1 RDW 12.5 Plt Count 237 Seg Neutrophils % 41.0 L Lymphocytes % 37.7 Monocytes % 10.7 Eosinophils % 10.2 H Basophils % 0.4 Absolute Neutrophils 4.5 Absolute Lymphocytes 4.1 Absolute Monocytes 1.2 Absolute Eosinophils 1.1 H Absolute Basophils 0.0 PT 13.9 INR 1.02 APTT 27.6 Sodium 141.0 Potassium 4.6 Chloride 99 Carbon Dioxide 30 Anion Gap 12 BUN 19 Creatinine 0.96 Est GFR ( Amer) > 60 Est GFR (Non-Af Amer) 57 L Glucose 108 Calcium 10.3 H Total Bilirubin 0.6 Direct Bilirubin 0.3 Neonat Total Bilirubin Not Reportable Neonat Direct Bilirubin Not Reportable Neonat Indirect Bili Not Reportable AST 76 H ALT 61 H Alkaline Phosphatase 65 Creatine Kinase 34 CK-MB (CK-2) Troponin I Total Protein 9.0 H Albumin 4.5 09/08/18 14:40 WBC RBC Hgb Hct MCV MCH MCHC RDW Plt Count Seg Neutrophils % Lymphocytes % Monocytes % Eosinophils % Basophils % Absolute Neutrophils Absolute Lymphocytes Absolute Monocytes Absolute Eosinophils Absolute Basophils PT INR APTT Sodium Potassium Chloride Carbon Dioxide Anion Gap BUN Creatinine Est GFR ( Amer) Est GFR (Non-Af Amer) Glucose Calcium Total Bilirubin Direct Bilirubin Neonat Total Bilirubin Neonat Direct Bilirubin Neonat Indirect Bili AST ALT Alkaline Phosphatase Creatine Kinase CK-MB (CK-2) < 0.22 Troponin I < 0.012 Total Protein Albumin Chest X-Ray 09/08/18 13:33 IMPRESSION: CHRONIC SCARRING. NO ACUTE RADIOGRAPHIC FINDING IN THE CHEST. Head CT 09/08/18 13:33 IMPRESSION: MILD CHRONIC CHANGES OF ATROPHY AND MICROVASCULAR ISCHEMIA. OLD LACUNAR INFARCTS. NO ACUTE PROCESS. EVIDENCE OF ACUTE STROKE: NO. Head CTA 09/08/18 14:30 IMPRESSION: NO CTA EVIDENCE OF STENOSIS OR ANEURYSM OF THE [place]. Head MRI 09/08/18 14:30 IMPRESSION: ATROPHY AND CHRONIC MICRO-VASCULAR ISCHEMIC CHANGES. OTHERWISE NORMAL MRI OF THE BRAIN WITHOUT INTRAVENOUS GADOLINIUM CONTRAST. EVIDENCE OF ACUTE STROKE: NO. Neck CTA 09/08/18 14:30 IMPRESSION: Atherosclerotic changes. No significant stenosis. No occlusion. Temp Pulse Resp BP Pulse Ox 106 H 18 207/98 H 99 09/08/18 13:33 09/08/18 13:33 09/08/18 13:33 09/08/18 13:33 Temp Pulse Resp BP Pulse Ox 106 H 23 H 138/80 H 100 09/08/18 13:33 09/08/18 17:00 09/08/18 15:46 09/08/18 17:00 73-year-old female with hypertension, hyperlipidemia, previous lacunar infarcts presents with concern for slurred speech that occurred prior to arrival. Vital signs reviewed upon arrival and patient is hypertensive. Patient is currently asymptomatic and has an NIH of 0. CT of the head was obtained and showed no evidence of acute stroke. CBC, CMP, cardiac enzymes are within normal limits. CTA of the head and neck shows no significant stenosis or occlusion. MRI of the head shows no evidence of acute stroke. Patient did receive enalapril for her elevated blood pressure and repeat blood pressure is currently 173/84. Discussed findings with the patient, her and daughter who are at the bedside. Patient advised to to be seen by her primary care physician for possi ble additional blood pressure medication. Discussed admission with patient and her who states that they are comfortable with going home and will return if symptoms return. Patient is currently on a statin, blood pressure medication and takes aspirin daily. 09/08/18 18:13 Patient was evaluated and treated as appropriate for the patient's presenting symptoms and complaint, with consideration of any critical or life threatening conditions that may be associated with their obtained history and exam as noted above. All results were discussed with patient and her family who is at the bedside. patient provided the opportunity to ask questions, and express concerns. Patient was educated on treatments based on their presumed diagnosis as noted above. At this time we will discharge the patient with return precautions and follow-up recommendations. Verbal discharge instructions given a the bedside. Medication warnings reviewed. Patient is in agreement with this plan and has verbalized understanding of return precautions. After careful consideration I feel that that patient can be safely discharged from the emergency department, they were advised to followup with a primary care physician in 2-3 days. Dictation on this chart was performed using voice recognition software and may result in unintended grammatical, spelling, syntax or errors. 09/08/18 18:17 - Vital Signs Vital signs: Temp Pulse Resp BP Pulse Ox 97.9 F 86 23 H 161/76 H 98 09/08/18 18:50 09/08/18 18:50 09/08/18 17:00 09/08/18 18:50 09/08/18 18:50 - Laboratory Result Diagrams: 09/08/18 14:40 09/08/18 14:40 Laboratory results interpreted by me: 09/08/18 09/08/18 14:40 14:40 WBC 10.9 H RBC 3.65 L Hct 34.8 L Seg Neutrophils % 41.0 L Eosinophils % 10.2 H Absolute Eosinophils 1.1 H Est GFR (Non-Af Amer) 57 L Calcium 10.3 H AST 76 H ALT 61 H Total Protein 9.0 H - Diagnostic Test Radiology reviewed: Image reviewed, Reports reviewed - EKG Interpretation by Me EKG shows normal: Sinus rhythm Rate: Normal Rhythm: NSR When compared to previous EKG there are: No significant change Discharge - Discharge Clinical Impression: Transient slurred speech TIA (transient ischemic attack) Qualifiers: Transient cerebral ischemia type: unspecified Qualified Code(s): G45.9 - Transient cerebral ischemic attack, unspecified Hypertension Qualifiers: Hypertension type: unspecified Qualified Code(s): I10 - Essential (primary) hypertension Disposition: HOME, SELF-CARE Instructions: High Blood Pressure, Requiring Treatment ([facility]), Transient Ischemic Attack ([facility]) Additional Instructions: Follow up with your [id number] hours for further care or return to the ED IMMEDIATELY if symptoms worsen or you have any concerns. If you cannot afford to follow up with your primary care physician a list of low cost clinics have been provided at the end of your discharge papers as well. Most prescribed medications have multiple side effects. The safest thing to do is when filling your prescription speak to your pharmacist regarding possible interactions with your normal home medications and over the counter medications such as Ibuprofen, Tylenol, Benadryl. If you experience any symptoms that cause you discomfort or concern you should discontinue the medication immediately and return to the emergency room or call your primary care physician. Forms: Elevated Blood Pressure Referrals: TIRSO PLUNKETT PA-C [ALLIED HEALTH PROFESSIONAL] - Follow up as needed ED NIH Stroke Scale - NIH Stroke Scale When completed:: Before Alteplase *: 1. NIH scale should be completed with appropriate accompanying assessment tools. *: 2. The NIH should reflect what the patient is capable of doing and should not be coached by the clinician. 1a. Level of Consciousness: 0=Alert;keenly responsive -: 1=Drowsy -: 2=Obtunded -: 3=Coma/unresponsive or reflex to noxious stimuli. 1a. Responses: 0 1b. Orientation Questions: a. What month is it? -: b. How old are you? -: 0=Answers both questions correctly. -: 1=Answers one question correctly or patient is intubated or has orotracheal trauma. -: 2=Answers neither question correctly. 1b. Responses: 0 1c. Response to commands: a. Open and close eyes? -: b. Fulling Machine Operator and release hand? -: Credit is given despite weakness. Demonstration of task is permitted. Substitute command if hands cannot be used. -: 0=Performs both tasks correctly -: 1=Performs one task correctly -: 2=Performs neither task correctly 1c. Responses: 0 2. Gaze: Establish eye contact and instruct patient to "Follow my finger" -: 0=Normal -: 1=Partial gaze palsy. Gaze is abnormal in one or both eyes, but where forced deviation or total gaze paresis is not present. -: 2=Forced deviation or total gaze paresis. 2. Responses: 0 3. Visual Brower: Sees fingers in all four quadrants. -: 0=No visual loss. -: 1=Partial hemianopsia. -: 2=Complete hemianopsia. -: 3=Bilateral hemianopsia (including Cortical blindness) 3. Responses: 0 4. Facial Movement: Instruct patient to: -: a. Show me your teeth -: b. Raise your eyebrows -: c. Close your eyes -: d. Smile -: 0=Normal symmetrical movement -: 1=Minor paralysis (flattened nasolabial fold, asymmetry on smiling). -: 2=Partial paralysis (total or near total paralysis of lower face). -: 3=Complete paralysis of upper and lower face 4. Responses: 0 5. Motor functions (left arm): Alternate sides and extend each arm with palms down (90 degrees if sitting or 45 degrees for supine). -: 0=No drift;limb holds for full 10 seconds. -: 1=Drift; limb holds but drifts down before full 10 seconds, but does not hit bed. -: 2=Some effort against gravity; limb cannot get to or maintain position. -: 3=No effort against gravity; limb falls. -: 4=No movement. -: UN=Amputation, joint fusion, explain in comments. 5. Responses (left arm): 0 5. Motor Functions (right arm): Alternate sides and extend each arm with palms down (90 degrees if sitting or 45 degrees for supine). -: 0=No drift;limb holds for full 10 seconds. -: 1=Drift; limb holds but drifts down before full 10 seconds, but does not hit bed. -: 2=Some effort against gravity; limb cannot get to or maintain position. -: 3=No effort against gravity; limb falls. -: 4=No movement. -: UN=Amputation, joint fusion, explain in comments. 5. Responses (right arm): 0 6. Motor Functions (left leg): With patient lying supine, alternate sides and extend each leg (30 degrees always while supine). -: 0=No drift, leg holds position for full 5 seconds -: 1=Drift; leg falls before full 5 seconds but does not hit bed. -: 2=Some effort against gravity, leg falls to bed but some effort against gravity. -: 3=No effort against gravity, leg falls to bed immediately. -: 4=No movement. -: UN=Amputation, joint fusion; explain in comments. 6. Responses (left leg): 0 6. Motor Functions (right leg): With patient lying supine, alternate sides and extend each leg (30 degrees always while supine). -: 0=No drift, leg holds position for full 5 seconds -: 1=Drift; leg falls before full 5 seconds but does not hit bed. -: 2=Some effort against gravity, leg falls to bed but some effort against gravity. -: 3=No effort against gravity, leg falls to bed immediately. -: 4=No movement. -: UN=Amputation, joint fusion; explain in comments. 6. Responses (right leg): 0 7. Limb Ataxia: With eyes open instruct patient to: -: a. "Touch your finger to your nose". -: b. "Touch your heel to your love" -: 0=Absent -: 1=Present in one limb. -: 2=Present in two limbs. -: UN=Amputation or joint fusion; explain in comments. 7. Responses: 0 8. Sensory: Test sensation using pinprick or noxious stimuli. Test as many body parts as possible. -: 0=Normal;no sensory loss -: 1=Mile to moderate sensory loss (patient feels pin prick but is less sharp on affected side). -: 2=Severe or total sensory loss. 8. Responses: 0 9. Best Language: Instruct patient to: -: a. "Describe what you see in this picture." -: b. "Name the items in this picture." -: c. "Read these sentences." -: 0=No aphasia, normal -: 1=Mild to moderate aphasia. -: 2=Severe aphasia -: 3=Mute, global aphasia, no usable speech or auditory comprehension. 9. Responses: 0 10. Articulation, Dysarthia: Instruct patient to: -: "Read these words" or "Repeat these words" -: 0=Normal -: 1=Mild to moderate; patient may slur some words but can be understood without difficulty. -: 2=Severe; patients speech so slurred as to be unintelligible in the absence of dysphasia. -: UN=Intubated or other physical barrier, explain in comments. 10. Responses: 0 11. Extinction or inattention: 0=No abnormality -: 1= Visual, tactile, auditory, spatial, or personal inattention or extinction to bilateral simulation in one or the sensory modalities. -: 2=Profound destin-inattention or destin-inattention to more than one modality; does not recognize own hand. 11. Responses: 0 Total Score: 0
[2018-09-08 14:52] LABS: PARTIAL THROMBOPLASTIN TIME 27.6 SEC (23.5-35.8)
[2018-09-08 14:53] LABS: ABSOLUTE EOSINOPHILS # (AUTO) 1.1 10^3/uL (0.0-0.6); ABSOLUTE LYMPHOCYTES (AUTO) 4.1 10^3/uL (0.5-4.7); ABSOLUTE MONOCYTES (AUTO) 1.2 10^3/uL (0.1-1.4); ABSOLUTE NEUT (AUTO) 4.5 10^3/uL (1.7-8.2); BASOPHILS % (AUTO) 0.4 % (0-2); EOSINOPHILS % (AUTO) 10.2 % (0-6); HEMATOCRIT 34.8 % (36.0-47.0); HEMOGLOBIN 12.2 g/dL (12.0-15.5); LYMPHOCYTES % (AUTO) 37.7 % (13-45); MEAN CORPUSCULAR HEMOGLOBIN 33.4 pg (27.0-33.4); MEAN CORPUSCULAR HGB CONC 35.1 g/dL (32.0-36.0); MEAN CORPUSCULAR VOLUME 95 fl (80-97); MONOCYTES % (AUTO) 10.7 % (3-13); PLATELET COUNT 237 10^3/uL (150-450); RED BLOOD COUNT 3.65 10^6/uL (3.72-5.28); RED CELL DISTRIBUTION WIDTH 12.5 % (11.5-14.0); TOTAL CELLS COUNTED % (AUTO) 100 %; WHITE BLOOD COUNT 10.9 10^3/uL (4.0-10.5)
[2018-09-08 15:06] LABS: INTERNATIONAL RATION (INR) 1.02; PROTHROMBIN TIME 13.9 SEC (11.4-15.4)
[2018-09-08 15:13] LABS: ALANINE AMINOTRANSFERASE 61 U/L (9-52); ALBUMIN 4.5 g/dL (3.5-5.0); ALKALINE PHOSPHATASE 65 U/L (38-126); ANION GAP 12 (5-19); ASPARTATE AMINO TRANSFERASE 76 U/L (14-36); BILIRUBIN,DIRECT 0.3 mg/dL (0.0-0.4); BILIRUBIN,TOTAL 0.6 mg/dL (0.2-1.3); BLOOD UREA NITROGEN 19 mg/dL (7-20); CALCIUM 10.3 mg/dL (8.4-10.2); CARBON DIOXIDE 30 mmol/L (22-30); CHLORIDE 99 mmol/L (98-107); CREATINE KINASE 34 U/L (30-135); GLUCOSE 108 mg/dL (75-110); POTASSIUM 4.6 mmol/L (3.6-5.0)
[2018-09-08 15:29] LABS: CREATINE KINASE MB < 0.22 ng/mL (<4.55); TROPONIN I < 0.012 ng/mL
--- NOTE | 2018-09-08 16:53 | EKG REPORT ---
SEVERITY:- NORMAL ECG - SINUS RHYTHM : Confirmed by: Gavin Whitmore MD 08-Sep-2018 16:52:23
--- NOTE | 2018-09-08 16:59 | RADIOLOGY REPORT (SQ) ---
EXAM DESCRIPTION: CTA HEAD COMPLETED DATE/TIME: 09/08/2018 4:14 pm REASON FOR STUDY: slurred speech COMPARISON: CT head 09/08/2018 TECHNIQUE: Post IV contrast scanning, thin section axial imaging through the brain to evaluate the a rterial structures. Source and MIP images are saved and reviewed on PACS. Advanced 3D imaging as volume-rendering, MIPs, SSD performed? yes All CT scanners at this facility use dose modulation, iterative reconstruction, and/or weight based d osing when appropriate to reduce radiation dose to as low as reasonably achievable (ALARA). [facility]: Dose Right [facility]: CareDose [facility]: Dose Right [facility]: Teradose 4D [facility]: [employer] CONTRAST TYPE AND DOSE: Dose not recorded here. See ct scan technologist notes. RENAL FUNCTION: BUN 19 creatinine 0.96 LIMITATIONS: None. FINDINGS: [place]: The anterior, middle, posterior cerebral arteries are all patent. No ev idence of aneurysm or focal stenosis. POSTERIOR CIRCULATION: The distal vertebral arteries are patent as is the basilar artery. No aneurysm . BRAIN: No gross enhancing lesions as visualized. BONES: Intact as visualized. SINUSES: No fluid or mucosal thickening. OTHER: No other significant finding. IMPRESSION: NO CTA EVIDENCE OF STENOSIS OR ANEURYSM OF THE [place]. TECHNICAL DOCUMENTATION: JOB ID: [id number] Quality ID # [id number]: Final reports with documentation of one or more dose reduction techniques (e.g., Au tomated exposure control, adjustment of the mA and/or kV according to patient size, use of iterative reconstruction technique) 2010 [employer] All Rights Reserved Reading location - IP/workstation name: [email or web address]
--- NOTE | 2018-09-08 17:06 | RADIOLOGY REPORT (SQ) ---
EXAM DESCRIPTION: CTA NECK COMPLETED DATE/TIME: 09/08/2018 4:12 pm REASON FOR STUDY: slurred speech COMPARISON: None. TECHNIQUE: Axial dynamic scanning technique with dynamic contrast enhancement through the extra-crab meat processor nial carotid and vertebral arteries. Multiplanar reconstruction. 3-D MIPS and Volume-rendered imag es acquired at the workstation and saved to PACS. Images are reviewed in soft tissue, bone, lung w indows. All CT scanners at this facility use dose modulation, iterative reconstruction, and/or weight based d osing when appropriate to reduce radiation dose to as low as reasonably achievable (ALARA). [facility]: Dose Right [facility]: CareDose [facility]: Dose Right [facility]: Teradose 4D [facility]: [employer] CONTRAST TYPE AND DOSE: contrast/concentration: Isovue 350.00 mg/ml; Total Contrast Delivered: 70.0 ml; Total Saline Delivered: 75.0 ml 70 mL Omnipaque 350- low osmolar. RENAL FUNCTION: BUN 19 creatinine 0.96 LIMITATIONS: None. FINDINGS: AORTIC ARCH: Normal three-vessel origin. Bilateral subclavian arteries are patent. No d issection. RIGHT CAROTIDS: Patent common, internal, and external carotid arteries. There is plaque in the carot id bulb and at the origin of the internal carotid. Less than 50% stenosis of the internal carotid. RIGHT VERTEBRAL: Patent. No dissection. LEFT CAROTIDS: Patent common, internal, and external carotid arteries. There is plaque in the caroti d bulb and at the origin of the internal carotid. Less than 50% stenosis of the internal carotid. LEFT VERTEBRAL: Patent. No dissection. OTHER: There is opacification in both lung apices. OTHER: 3-D reconstructions confirm findings. IMPRESSION: Atherosclerotic changes. No significant stenosis. No occlusion. COMMENT: Quality ID #[id number]: Measurements of distal internal carotid diameter were used as the denomina tor for stenosis measurement. TECHNICAL DOCUMENTATION: JOB ID: [id number] Quality ID # [id number]: Final reports with documentation of one or more dose reduction techniques (e.g., Au tomated exposure control, adjustment of the mA and/or kV according to patient size, use of iterative reconstruction technique) 2010 [employer]- All Rights Reserved Reading location - IP/workstation name: [email or web address]
--- NOTE | 2018-09-08 17:59 | RADIOLOGY REPORT (SQ) ---
EXAM DESCRIPTION: MRI HEAD WITHOUT COMPLETED DATE/TIME: 09/08/2018 5:43 pm REASON FOR STUDY: slurred speech COMPARISON: 05/14/2016 TECHNIQUE: Multiplanar imaging includes non-contrasted T1, T2, FLAIR, and diffusion with ADC map seq uences. Images stored on PACS. LIMITATIONS: None. FINDINGS: ANATOMY: No anomalies. Normal vascular flow voids. Pituitary fossa normal. CSF SPACES: Atrophy induced prominence of ventricles and CSF spaces. CEREBRUM: High signal intensity lesions scattered throughout the white matter on FLAIR imaging with d istribution suggesting micro-vascular ischemic changes. No evidence of hemorrhage, mass, or extraaxi al fluid collection. POSTERIOR FOSSA: No signal alteration. No hemorrhage. No edema, masses or mass effect. Internal ralph tory canals, cerebello-pontine angles, mastoids normal. DIFFUSION IMAGING: Negative for acute or sub-acute infarction. ORBITS: No masses. Globes normal. PARANASAL SINUSES: No fluid levels. Mucosa normal. OTHER: No other significant finding. IMPRESSION: ATROPHY AND CHRONIC MICRO-VASCULAR ISCHEMIC CHANGES. OTHERWISE NORMAL MRI OF THE BRAIN W ITHOUT INTRAVENOUS GADOLINIUM CONTRAST. EVIDENCE OF ACUTE STROKE: NO. TECHNICAL DOCUMENTATION: JOB ID: [id number] [employer]- All Rights Reserved Reading location - IP/workstation name: [email or web address]
[2018-09-08 19:00] VITALS: BP 161/76
== END 2018-09-08 19:01 | disposition home or self-care (01) ==
LOC: ER 13:25
DX: G45.9 Transient cerebral ischemic attack, unspecified (principal); R47.81 Slurred speech; R20.0 Anesthesia of skin; I10 Essential (primary) hypertension; M79.10 Myalgia, unspecified site; I25.10 Atherosclerotic heart disease of native coronary artery without angina pectoris; E78.00 Pure hypercholesterolemia, unspecified; Z90.49 Acquired absence of other specified parts of digestive tract; Z86.73 Personal history of transient ischemic attack (TIA), and cerebral infarction without residual deficits
CPT/HCPCS: 93005; 99285; 96374; 36415; 82553; 82550; 85025; 85610; 85730; 80053; 84484; 70551; 71045; 70450; 70496; 70498; 93010; J3490